=== PATIENT | female | born 1980 | race African-American/Black ===

== ENCOUNTER 2023-04-26 00:56 | Emergency (ER) | payer SELFPAY ==
[2023-04-26] VITALS (19 sets, daily range): BP systolic 115–218; BP diastolic 62–146; PULSE 89–126; RESP 16–20; O2SAT 90–100; BMI 32.8
--- NOTE | 2023-04-26 01:11 | PC.NURSE ---
see triage note for details, pt unable to answer questions at this time, pt very tearful and unable to remember any events of the day
[2023-04-26 01:24] LABS: UR Morphine/Opiate cutoff 300 Negative (Negative); Ur Creatinine Normal (Normal); Ur Specific Gravity Normal (Normal); Urine Amphetamines Negative (Negative); Urine Barbiturates Negative (Negative); Urine Benzodiazepines Negative (Negative); Urine Cocaine Negative (Negative); Urine MDMA Negative (Negative); Urine Methadone Negative (Negative); Urine Methamphetamines Negative (Negative); Urine Oxycodone Negative (Negative); Urine Phencyclidine Negative (Negative); Urine Tetrahydrocannabinol Positive (Negative); Urine Tricyclic Antidepressant Negative (Negative); Urine pH Normal (Normal)
--- NOTE | 2023-04-26 01:25 | PC.NURSE ---
[place] [employer] at bedside
[2023-04-26 01:30] LABS: Add Manual Diff / Slide Review NO; Basophils Absolute Auto 0 /uL (0-100); Basophils Percent Auto 0.6 % (0-2); Eosinophils Absolute Auto 100 /uL (0-450); Eosinophils Percent Auto 0.7 % (2-4); Hematocrit 38.1 % (36-46); Hemoglobin 12.5 g/dL (12.0-16.0); Lymphocytes Absolute Auto 2900 /uL (1100-4500); Lymphocytes Percent Auto 37.2 % (25-40); Mean Corpuscular Hemoglobin 26.7 PG (26-34); Mean Corpuscular Volume 80.9 fL (80-100); Monocytes Absolute Auto 600 /uL (0-900); Monocytes Percent Auto 7.2 % (3-14); Neutrophils Absolute Auto 4300 /uL (1500-7000); Neutrophils Percent Auto 54.3 % (50-75); Platelet Count 416 X10^3/uL (150-400); Red Blood Cell Count 4.71 X10^6/uL (4.0-5.2); White Blood Cell Count 7.9 X10^3/uL (4.5-11.0)
[2023-04-26 01:42] LABS: Alanine Aminotransferase 27 IU/L (<35); Albumin 4.9 g/dL (3.5-5.0); Albumin Globulin Ratio 1.3 (1.0-2.8); Alkaline Phosphatase 66 U/L (38-126); Aspartate Aminotransferase 32 IU/L (14-36); BUN Creatinine Ratio 10.7 (6-22); Bilirubin Total 0.5 mg/dL (0.2-1.3); Blood Urea Nitrogen 11 mg/dL (7-17); Calcium 9.7 mg/dL (8.4-10.2); Carbon Dioxide 21 mmol/L (22-32); Chloride 108 mmol/L (98-107); Estimated Glomerular Filt Rate > 60 mL/min (>60); Ethanol (ETOH) 232 mg/dL; Globulin 3.9 g/dL (1.7-4.1); Glucose 108 mg/dL (70-100); HEMOLYSIS < 15 (0-50); Sodium 143 mmol/L (137-145); Total Protein 8.8 g/dL (6.3-8.2)
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
[2023-04-26] MEDS: LORazepam 2 MG/ML INJ 1 MG IV (03:48)
[2023-04-26] MEDS: SODIUM CHLORIDE 0.9% 1,000 ML 1000 ML IV (03:48)
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
== END 2023-04-26 09:50 | disposition home or self-care (01) ==
PROVIDERS: Emergency Provider Emergency Medicine
DX: F10.129 Alcohol abuse with intoxication, unspecified (principal); Y90.7 Blood alcohol level of 200-239 mg/100 ml; T43.91XA Poisoning by unspecified psychotropic drug, accidental (unintentional), initial encounter; R41.0 Disorientation, unspecified
CPT/HCPCS: 36415; 80053; 80305; 80320; 85025; 96361; 96374; 99284; J2060